=== PATIENT | male | born 1960 | race Caucasian/White ===

== ENCOUNTER 2017-07-17 06:41 | Day surgery (SDC) | payer BC ==
[2017-07-17] MEDS ORDERED: Lactated Ringers 1,000 ML IV SCH ×2 (07:00→09:00)
--- NOTE | 2017-07-17 07:20 | PCM.PREANE ---
Preanesthetic Assessment - Anesthesia/Transfusion/Family Hx Anesthesia History: Prior Anesthesia Without Reaction Other Type of Anesthesia Reaction Comment: Denies any known problem in past, no known family hx: problems Family History of Anesthesia Reaction: No Transfusion History: No Prior Transfusion(s) Intubation History: Unknown - Review of Systems General: No Symptoms Pulmonary: No Symptoms Cardiovascular: No Symptoms Gastrointestinal: Other (hematemesis) Neurological: No Symptoms Other: Reports: None - Physical Assessment O2 Sat by Pulse Oximetry: 99 Respiratory Rate: 16 Vital Signs: Last Vital Signs Temp 36.1 C 07/17/17 06:50 Pulse 58 L 07/17/17 06:50 Resp 16 07/17/17 06:50 BP 153/83 H 07/17/17 06:50 Pulse Ox 99 07/17/17 06:50 Height: 1.73 m Weight: 109.769 kg ASA Class: 2 Mental Status: Alert & Oriented x3 Airway Class: Mallampati = 2 Dentition: Reports: Normal Dentition, [place](s) (few at bottom front) Thyro-Mental Finger Breadths: 3 Mouth Opening Finger Breadths: 3 ROM/Head Extension: Full Lungs: Clear to Auscultation, Normal Respiratory Effort Cardiovascular: Regular Rate, Regular Rhythm - Allergies Allergies/Adverse Reactions: Allergies Allergy/AdvReac Type Severity Reaction Status Date / Time No Known Allergies Allergy Verified 07/13/17 11:39 - Blood Blood Available: No - Anesthesia Plan Pre-Op Medication Ordered: None - Acknowledgements Anesthesia Type Planned: MAC Pt an Appropriate Candidate for the Planned Anesthesia: Yes Alternatives and Risks of Anesthesia Discussed w Pt/Guardian: Yes Pt/Guardian Understands and Agrees with Anesthesia Plan: Yes PreAnesthesia Questionnaire HEENT History: Reports: Other (See Below) Other HEENT History: hx of fx nose Cardiovascular History: Reports: Other (See Below) (h/o HTN and hypercholesterolemia) Respiratory History: Reports: Other (See Below) (h/o benign pulmonary nodule) Other Respiratory History: 40 year hx of smoking, 0.5-1 PPD Gastrointestinal History: Reports: Colon Polyp, GERD Other Gastrointestinal History: Heartburn/GERD managed with current use of Prilosec.... hx of Barrets Esophagus Musculoskeletal History: Reports: Arthritis Other Musculoskeletal History: hx: fracturing nose Other Neuro History: hx: migraines, none for several years Endocrine/Metabolic History: Reports: Obesity/BMI 30+ - Past Surgical History Head Surgeries/Procedures: Reports: None GI Surgical History: Reports: Colonoscopy, EGD Other Musculoskeletal Surgeries/Procedures:: Right knee ACL repair, Release of Trigger finger, right shoulder RTCR - SUBSTANCE USE Smoking Status *Q: Current Every Day Smoker (1/2-1 ppd) Tobacco Use Within Last Twelve Months: Cigarettes Days Per Week of Alcohol Use: 2 Number of Drinks Per Day: 2 Total Drinks Per Week: 4 Recreational Drug Use History: No - HOME MEDS Home Medications: Home Meds Omeprazole 20 mg PO DAILY 01/01/15 [History] Magnesium 250 mg PO DAILY 07/13/17 [History] [place]-3 Fatty Acids/Fish Oil [[facility] Fish Oil 1,000 mg Softgel] 1 cap PO DAILY 06/29 [History] - CURRENT (IN HOUSE) MEDS Current Meds: Current Medications Lactated Ringer's (Ringers, Lactated) 1,000 mls @ 125 mls/hr IV ASDIRECTED [facility] Last Admin: 07/17/17 06:55 Dose: 125 mls/hr
[2017-07-17] MEDS ORDERED: Propofol 200 MG/20 ML SDV ONE ×2 (07:23→08:09)
[2017-07-17] MEDS ORDERED: Lidocaine 2% 5 ML SDV ONE (07:23)
--- NOTE | 2017-07-17 08:50 | PCM.POSTAN ---
POST ANESTHESIA ASSESSMENT - MENTAL STATUS Mental Status: Alert - RESPIRATORY Respiratory Status: Respiratory Rate WNL, Airway Patent, O2 Saturation Stable - CARDIOVASCULAR CV Status: Pulse Rate WNL, Blood Pressure Stable - GASTROINTESTINAL GI Status: No Symptoms - PAIN Pain Score: 0 - POST OP HYDRATION Hydration Status: Adequate & Stable - OBSERVATIONS Free Text/Narrative:: no anesthesia problems
--- NOTE | 2017-07-17 08:52 | PCM.OPNOTE ---
- General Post-Op/Procedure Note Date of Surgery/Procedure: 07/17/17 Operative Procedure(s): EGD w/ gastric and esophageal biopsies. Colonoscopy w/ cold rectal polypectomy. Pre Op Diagnosis: Hematemesis w/ melena. Hx of Barretts' esophagus. Hx of colon polyps. Post-Op Diagnosis: Gastritis w/ esophagitis. Rectal polyp. Sigmoid diverticulosis. Anesthesia Technique: MAC (ASA II) Primary Surgeon: Ayad Payan Condition: Good Free Text/Narrative:: Intake & Output 07/16/17 07/17/17 07/17/17 19:59 03:59 11:59 Intake Total 850 Balance 850 Dictation [id number] CPT CODE [id number]
[2017-07-17 09:46] VITALS: BP 127/68
--- NOTE | 2017-07-17 11:59 | OR ---
SURGEON: Ayad Payan M.D. DATE OF PROCEDURE: 07/17/2017 OPERATION PERFORMED: Esophagogastroduodenoscopy with biopsy. ANESTHESIA: MAC. ASA CLASSIFICATION: Two. PREOPERATIVE DIAGNOSES: 1. Recent history of hematemesis. 2. History of Martinez's esophagus. POSTOPERATIVE DIAGNOSES: 1. Gastritis. 2. Esophagitis with distal columnar epithelial changes. DESCRIPTION OF PROCEDURE: The patient was taken to the endoscopy room, positioned on the endoscopy table in the supine position. Time-out was called for appropriate identification of patient and procedure. Monitored anesthesia care was provided. The bite block was placed between the patient's teeth. The gastroscope was inserted through the bite block into the oropharynx and advanced without difficulty through the esophagus and stomach into the duodenum where examination was carried out in a retrograde fashion. The duodenum shows no acute inflammatory changes or ulcerations. The stomach does show [id number] gastritis. Antral biopsies were obtained to look for the presence of Helicobacter pylori. No acute ulcerations were noted. The gastroscope was retroflexed to visualize the proximal stomach. No lesions were noted proximally. No significant hiatal hernia was noted. The gastroscope was then straightened, the stomach aspirated and the scope slowly withdrawn. The GE junction does show changes suggestive of columnar epithelium and biopsies of the distal esophagus were obtained. The mid and proximal esophagus showed no acute inflammatory changes or ulcerations. The vocal cords were briefly visualized as the scope was withdrawn and noted to move symmetrically. The gastroscope was then removed with the patient having tolerated this portion of the procedure well. Following colonoscopy, he was taken to recovery room in stable condition. QUANG / MADHAVI /[id number]
--- NOTE | 2017-07-17 12:08 | OR ---
SURGEON: Ayad Payan M.D. DATE OF PROCEDURE: 07/17/2017 OPERATION PERFORMED: Colonoscopy with cold rectal polypectomy. ANESTHESIA: MAC. ASA CLASSIFICATION: Two. PREOPERATIVE DIAGNOSES: 1. Melena. 2. Personal history of colon polyps. POSTOPERATIVE DIAGNOSES: 1. Rectal polyp. 2. Sigmoid diverticulosis. DESCRIPTION OF PROCEDURE: With the patient having completed esophagogastroduodenoscopy with biopsy, he was now positioned in the left lateral decubitus position. The colonoscope was inserted into the rectum and advanced with minimal difficulty to the cecum. Cecum was identified by internal landmarks, the appendiceal orifice, and external pressure. The cecum, ascending colon, hepatic flexure, transverse colon, splenic flexure, and descending colon showed no tumors, polyps, diverticula, angiodysplasia, or evidence of inflammatory bowel disease. Sigmoid colon demonstrates numerous small diverticula. No stricture, spasm, or bleeding was noted. The colonoscope was withdrawn to the rectum where one small polyp was encountered and removed with the cold biopsy forceps. The colonoscope was then retroflexed to visualize the anal orifice from above. No tumors, polyps, or acute hemorrhoidal changes were noted. The colonoscope was straightened, the rectum aspirated, and the colonoscope removed. The patient tolerated the procedure well and was taken to recovery room in stable condition. QUANG / MADHAVI /[id number]
== END 2017-07-17 09:14 | disposition home or self-care (01) ==
LOC: MW.SDS 06:41
PROVIDERS: ATTEND Surgery
DX: K62.1 Rectal polyp (principal); K29.50 Unspecified chronic gastritis without bleeding; K57.30 Diverticulosis of large intestine without perforation or abscess without bleeding; J44.9 Chronic obstructive pulmonary disease, unspecified; I10 Essential (primary) hypertension; F17.210 Nicotine dependence, cigarettes, uncomplicated; E66.9 Obesity, unspecified; Z68.36 Body mass index [BMI] 36.0-36.9, adult; K21.0 Gastro-esophageal reflux disease with esophagitis; E78.00 Pure hypercholesterolemia, unspecified; Z86.010 Personal history of colon polyps; Z87.19 Personal history of other diseases of the digestive system
CPT/HCPCS: 43239; 45380; J7120; 88305; 88312; J2704

== ENCOUNTER 2021-04-02 07:14 | Day surgery (SDC) | payer BC ==
[~2021-04-02 07:14] MED LIST: Lactated Ringers 1,000 ML IV SCH; Midazolam 1 MG/ML 2 ML SDV ONE; Propofol 200 MG/20 ML SDV ONE; fentaNYL 100 MCG/2 ML SDV ONE
--- NOTE | 2021-04-02 07:49 | PCM.PREANE ---
Preanesthetic Assessment - Anesthesia/Transfusion/Family Hx Anesthesia History: Prior Anesthesia Without Reaction Other Type of Anesthesia Reaction Comment: Denies any known problem in past, no known family hx: problems Transfusion History: No Prior Transfusion(s) Intubation History: Unknown - Review of Systems General: No Symptoms Pulmonary: No Symptoms Cardiovascular: No Symptoms Gastrointestinal: No Symptoms Neurological: No Symptoms Other: Reports: None - Physical Assessment NPO Status Date: 04/02/21 NPO Status Time: 00:00 Vital Signs: Last Vital Signs Temp 96.4 F L 04/02/21 07:25 Pulse 56 L 04/02/21 07:25 Resp 16 04/02/21 07:25 BP 138/92 H 04/02/21 07:25 Pulse Ox Height: 5 ft 8 in Weight: 235 lb Mental Status: Alert & Oriented x3 Dentition: Reports: Normal Dentition ROM/Head Extension: Full Lungs: Clear to Auscultation, Normal Respiratory Effort Cardiovascular: Regular Rate, Regular Rhythm - Allergies Allergies/Adverse Reactions: Allergies Allergy/AdvReac Type Severity Reaction Status Date / Time No Known Allergies Allergy Verified 03/29/21 12:29 - Acknowledgements Anesthesia Type Planned: General Anesthesia Pt an Appropriate Candidate for the Planned Anesthesia: Yes Alternatives and Risks of Anesthesia Discussed w Pt/Guardian: Yes Pt/Guardian Understands and Agrees with Anesthesia Plan: Yes PreAnesthesia Questionnaire HEENT History: Reports: Other (See Below) Other HEENT History: hx of fx nose Cardiovascular History: Reports: Hypertension Respiratory History: Reports: COPD, Other (See Below) Other Respiratory History: 40 year hx of smoking, 0.5-1 PPD, does not have an inhaler Gastrointestinal History: Reports: Colon Polyp, Diverticulosis, Gastritis, GERD Other Gastrointestinal History: Heartburn/GERD managed with current use of Prilosec.... hx of Barrets Esophagus Genitourinary History: Reports: None Musculoskeletal History: Reports: Arthritis Other Musculoskeletal History: hx: fracturing nose Neurological History: Reports: Migraines Other Neuro History: hx: migraines, none for several years Psychiatric History: Reports: None Endocrine/Metabolic History: Reports: Obesity/BMI 30+ Hematologic History: Reports: None Immunologic History: Reports: None Oncologic (Cancer) History: Reports: None Dermatologic History: Reports: None - Past Surgical History Head Surgeries/Procedures: Reports: None HEENT Surgical History: Reports: None Cardiovascular Surgical History: Reports: None Respiratory Surgical History: Reports: None GI Surgical History: Reports: Colonoscopy, EGD Male Surgical History: Reports: None Endocrine Surgical History: Reports: None Neurological Surgical History: Reports: None Musculoskeletal Surgical History: Reports: Arthroscopic Knee, Shoulder Surgery Other Musculoskeletal Surgeries/Procedures:: Right knee ACL repair, Release of Trigger finger, right shoulder RTCR, hx of skin graft to left wrist and hand Oncologic Surgical History: Reports: None Dermatological Surgical History: Reports: None - SUBSTANCE USE Tobacco Use Status *Q: Former Tobacco User Tobacco Use Within Last Twelve Months: No Recreational Drug Use History: No - HOME MEDS Home Medications: Home Meds Omeprazole 20 mg PO DAILY 01/01/15 [History] lisinopriL [Lisinopril] 20 mg PO DAILY 03/29/21 [History] - CURRENT (IN HOUSE) MEDS Current Meds: Current Medications Lactated Ringer's (Ringers, Lactated) 1,000 mls @ 125 mls/hr IV ASDIRECTED [facility] Last Admin: 04/02/21 07:34 Dose: 125 mls/hr Documented by: Discontinued Medications Fentanyl (Fentanyl 100 Mcg/2 Ml Sdv) Confirm Administered Dose 100 mcg .ROUTE .STK-MED ONE Stop: 04/02/21 06:58 Midazolam HCl (Midazolam 1 Mg/Ml 2 Ml Sdv) Confirm Administered Dose 2 mg .ROUTE .STK-MED ONE Stop: 04/02/21 06:58 Propofol (Propofol 200 Mg/20 Ml Sdv) Confirm Administered Dose 200 mg .ROUTE .STK-MED ONE Stop: 04/02/21 06:58
[2021-04-02] MEDS ORDERED: Lidocaine 2% 5 ML SDV ONE (08:42)
[2021-04-02] MEDS ORDERED: Propofol 200 MG/20 ML SDV ONE (08:43)
--- NOTE | 2021-04-02 09:55 | PCM.OPNOTE ---
- General Post-Op/Procedure Note Date of Surgery/Procedure: 04/02/21 Operative Procedure(s): Esophagogastroduodenoscopy with gastric and esophageal biopsies. Colonoscopy with cold rectal polypectomy. Pre Op Diagnosis: History of Martinez's esophagus. History of colon polyps. Family history of colon cancer. Post-Op Diagnosis: Mild to moderate chronic gastritis. Hiatal hernia with esophagitis. Rectal polyp. Sigmoid diverticulosis. Anesthesia Technique: MAC (ASA III) Primary Surgeon: Ayad Payan Coin Machine Servicer Repairer: Eladio Hall Condition: Good Free Text/Narrative:: DICTATION [id number] CPT CODE [id number]
[2021-04-02] MEDS ORDERED: Lactated Ringers 1,000 ML IV SCH (10:00)
[2021-04-02 10:17] VITALS: BP 144/82; PULSE 47
--- NOTE | 2021-04-02 10:29 | PCM48HPAN ---
Post Anesthesia Note - EVALUATION WITHIN 48HRS OF ANESTHETIC Vital Signs in Normal Range: Yes Patient Participated in Evaluation: Yes Respiratory Function Stable: Yes Airway Patent: Yes Cardiovascular Function Stable: Yes Hydration Status Stable: Yes Pain Control Satisfactory: Yes Nausea and Vomiting Control Satisfactory: Yes Mental Status Recovered: Yes Vital Signs: Last Vital Signs Temp 97.2 F 04/02/21 10:11 Pulse 47 L 04/02/21 10:11 Resp 14 04/02/21 10:11 BP 144/82 H 04/02/21 10:11 Pulse Ox 95 04/02/21 10:11
--- NOTE | 2021-04-02 10:29 | PCM.POSTAN ---
POST ANESTHESIA ASSESSMENT - MENTAL STATUS Mental Status: Alert, Oriented - VITAL SIGNS Vital Signs: Last Vital Signs Temp 97.2 F 04/02/21 10:11 Pulse 47 L 04/02/21 10:11 Resp 14 04/02/21 10:11 BP 144/82 H 04/02/21 10:11 Pulse Ox 95 04/02/21 10:11 - RESPIRATORY Respiratory Status: Respiratory Rate WNL, Airway Patent, O2 Saturation Stable - CARDIOVASCULAR CV Status: Pulse Rate WNL, Blood Pressure Stable - GASTROINTESTINAL GI Status: No Symptoms - POST OP HYDRATION Hydration Status: Adequate & Stable
--- NOTE | 2021-04-02 11:36 | OR ---
SURGEON: Ayad Payan M.D. DATE OF PROCEDURE: 04/02/2021 OPERATION PERFORMED: Esophagogastroduodenoscopy with gastric and esophageal biopsies. PRIMARY SURGEON: Ayad Payan M.D. EARRING MAKER: Transfer Table Operator: WILLIAM Aguirre student. ANESTHESIA: MAC. ASA CLASSIFICATION: III. PREOPERATIVE DIAGNOSES: 1. Personal history of Martinez's esophagus. 2. History of gastritis. POSTOPERATIVE DIAGNOSES: 1. [id number] chronic gastritis. 2. Hiatal hernia with esophagitis, possible Martinez. DESCRIPTION OF PROCEDURE: The patient was taken to the endoscopy room and positioned on the endoscopy table in the left lateral decubitus position. Time-out was called for appropriate identification of the patient and procedure. Monitored anesthesia care was provided. The bite block was placed between the patient's teeth. The gastroscope was inserted through the bite block and advanced without difficulty through the oropharynx into the esophagus and subsequently through the stomach into the duodenum, where examination was now carried out in a retrograde fashion. The duodenum showed no acute inflammatory changes and no ulcerations were seen. The stomach did show [id number] chronic gastritis. No ulcerations were noted. Antral biopsies were obtained to look for the presence of Helicobacter pylori. The gastroscope was then retroflexed to visualize the proximal stomach. No tumors or polyps were noted proximally and no ulcers were seen. The gastroscope was then straightened and slowly withdrawn. The patient did have a small hiatal hernia and did show changes of esophagitis in the distal esophagus. Biopsies of the distal esophagus were obtained. No acute ulcerations were noted. The esophagus itself demonstrated good contractility. No mid or proximal lesions were identified. The vocal cords were briefly visualized as the scope was withdrawn and noted to move symmetrically. No lesions were noted on the vocal cords. The gastroscope was then removed with the patient having tolerated this portion of the procedure well. Following colonoscopy, he was taken to recovery room in stable condition. QUANG / MADHAVI /[id number]
--- NOTE | 2021-04-02 11:46 | OR ---
SURGEON: Ayad Payan M.D. DATE OF PROCEDURE: 04/02/2021 OPERATION PERFORMED: Colonoscopy with cold rectal polypectomy. PRIMARY SURGEON: Ayad Payan M.D. DISC PAD KNOCKOUT WORKER: Fruit Grading Supervisor: WILLIAM Aguirre student. ANESTHESIA: MAC. ASA CLASSIFICATION: III. PREOPERATIVE DIAGNOSES: 1. Personal history of colon polyps. 2. Family history of colon cancer. POSTOPERATIVE DIAGNOSES: 1. Rectal polyp. 2. Sigmoid diverticulosis. DESCRIPTION OF PROCEDURE: With the patient having completed upper GI endoscopy, he was maintained in the left lateral decubitus position. The colonoscope was inserted into the rectum and advanced with minimal difficulty to the cecum. The cecum was identified by internal landmarks and external pressure. The colonoscope was retroflexed to visualize the ascending colon from below, then straightened and slowly withdrawn. The cecum, ascending colon, hepatic flexure, transverse colon, splenic flexure, and descending colon showed no tumors, polyps, diverticula, or angiodysplastic changes. Sigmoid colon demonstrated moderate diverticular change. No stricture, spasm, or bleeding was noted. No polyps were encountered in the sigmoid colon. The colonoscope was withdrawn to the rectum where a single polyp was identified and removed with cold biopsy forceps. The colonoscope was retroflexed to visualize the anal orifice from above. No tumors or polyps were seen, and there were no acute hemorrhoidal changes. The colonoscope was then straightened, the rectum aspirated, and the colonoscope removed. The patient tolerated the procedure well and was taken to recovery room in stable condition. QUANG / MADHAVI /[id number]
== END 2021-04-02 10:35 | disposition home or self-care (01) ==
LOC: MW.SDS 07:14
PROVIDERS: ATTEND Surgery
DX: Z12.11 Encounter for screening for malignant neoplasm of colon (principal); K62.1 Rectal polyp; K57.30 Diverticulosis of large intestine without perforation or abscess without bleeding; K29.50 Unspecified chronic gastritis without bleeding; K44.9 Diaphragmatic hernia without obstruction or gangrene; K29.00 Acute gastritis without bleeding; K22.70 Barrett's esophagus without dysplasia; F17.210 Nicotine dependence, cigarettes, uncomplicated; J44.9 Chronic obstructive pulmonary disease, unspecified; K21.00 Gastro-esophageal reflux disease with esophagitis, without bleeding; I10 Essential (primary) hypertension; G43.909 Migraine, unspecified, not intractable, without status migrainosus; E78.00 Pure hypercholesterolemia, unspecified; Z79.899 Other long term (current) drug therapy; Z80.0 Family history of malignant neoplasm of digestive organs; Z98.890 Other specified postprocedural states
CPT/HCPCS: 43239; 45380; 88305; 88342; J2250; J2704; J3010; J7120; 00813

== ENCOUNTER 2022-08-19 09:16 | Day surgery (SDC) | payer BC ==
[~2022-08-19 09:16] MED LIST changes: -Midazolam 1 MG/ML 2 ML SDV ONE; -Propofol 200 MG/20 ML SDV ONE; -fentaNYL 100 MCG/2 ML SDV ONE
[2022-08-19] MEDS ORDERED: Propofol 200 MG/20 ML SDV ONE ×3 (09:35→10:25)
[2022-08-19] MEDS ORDERED: Midazolam 1 MG/ML 2 ML SDV ONE (10:00)
[2022-08-19] MEDS ORDERED: Lactated Ringers 1,000 ML IV SCH (10:30)
[2022-08-19 11:37] VITALS: BP 100/55; PULSE 82
== END 2022-08-19 11:32 | disposition home or self-care (01) ==
LOC: MW.SDS 09:16
PROVIDERS: ATTEND Surgery
DX: K29.50 Unspecified chronic gastritis without bleeding (principal); K29.00 Acute gastritis without bleeding; K21.9 Gastro-esophageal reflux disease without esophagitis; K44.9 Diaphragmatic hernia without obstruction or gangrene; K22.81 Esophageal polyp; K22.70 Barrett's esophagus without dysplasia; J44.9 Chronic obstructive pulmonary disease, unspecified; I10 Essential (primary) hypertension; K42.9 Umbilical hernia without obstruction or gangrene; E78.00 Pure hypercholesterolemia, unspecified; F17.210 Nicotine dependence, cigarettes, uncomplicated; Z86.010 Personal history of colon polyps; Z80.0 Family history of malignant neoplasm of digestive organs
CPT/HCPCS: 43239; J2250; J2704; J7120; 00731

== ENCOUNTER 2022-08-22 07:48 | Day surgery (SDC) | payer BC ==
[~2022-08-22 07:48] MED LIST changes: +Albuterol 0.083% 2.5 MG/3 ML Neb Soln NEB PRN; +HYDROmorphone 1 MG/ML Syringe IVPUSH PRN; +Metoclopramide 10 MG/2 ML SDV IVPUSH PRN; +Morphine 2 MG/ML SYRINGE IVPUSH PRN; +Naloxone 0.4 MG/ML SDV IVPUSH PRN; +Ondansetron 4 MG/2 ML SDV IVPUSH PRN; +Scopolamine 1.5 MG Transdermal Patch TOP ONE; +ceFAZolin 2 GM in Sodium Chloride 0.9% 50 ML IV ONE; +fentaNYL 50 MCG/ML SDV IVPUSH PRN
[2022-08-22] MEDS ORDERED: Ropivacaine 0.5% 5 MG/ML 30 ML SDV ONE (08:50)
[2022-08-22] MEDS ORDERED: Ondansetron 4 MG/2 ML SDV ONE (09:03)
[2022-08-22] MEDS ORDERED: Lidocaine 2% 5 ML SDV ONE (09:03)
[2022-08-22] MEDS ORDERED: Dexamethasone 4 MG/ML 5 ML MDV ONE (09:03)
[2022-08-22] MEDS ORDERED: Ketorolac 30 MG/ML SDV ONE (09:03)
[2022-08-22] MEDS ORDERED: Propofol 200 MG/20 ML SDV ONE (09:03)
[2022-08-22] MEDS ORDERED: Lidocaine 2% 11 ML Jelly Filled Syringe ONE (09:03)
[2022-08-22] MEDS ORDERED: fentaNYL 100 MCG/2 ML SDV ONE (09:03)
[2022-08-22] MEDS ORDERED: Bupivacaine 0.5% 30 ML SDV ONE (09:08)
[2022-08-22] MEDS ORDERED: ceFAZolin 1 GM Vial ONE ×2 (09:10→09:35)
[2022-08-22] MEDS ORDERED: Rocuronium Bromide 50 MG/5 ML Syringe ONE (09:38)
[2022-08-22] MEDS ORDERED: Sugammadex Sodium 200 MG/2 ML VIAL ONE (10:11)
[2022-08-22] MEDS ORDERED: Acetaminophen/HYDROcodone 325-5 MG Tab PO PRN (10:31)
[2022-08-22] MEDS ORDERED: Morphine 4 MG/ML Syringe IVPUSH PRN (10:31)
[2022-08-22] MEDS ORDERED: Lactated Ringers 1,000 ML IV SCH (10:45)
[2022-08-22 11:39] VITALS: BP 130/63; PULSE 65
== END 2022-08-22 11:30 | disposition home or self-care (01) ==
LOC: MW.SDS 07:48
PROVIDERS: ATTEND Surgery
DX: K42.0 Umbilical hernia with obstruction, without gangrene (principal); J44.9 Chronic obstructive pulmonary disease, unspecified; K29.50 Unspecified chronic gastritis without bleeding; K21.9 Gastro-esophageal reflux disease without esophagitis; I10 Essential (primary) hypertension; E78.00 Pure hypercholesterolemia, unspecified; G47.30 Sleep apnea, unspecified; E66.9 Obesity, unspecified; G89.29 Other chronic pain; M54.2 Cervicalgia; F17.210 Nicotine dependence, cigarettes, uncomplicated; G43.909 Migraine, unspecified, not intractable, without status migrainosus; M19.90 Unspecified osteoarthritis, unspecified site; Z79.899 Other long term (current) drug therapy; Z98.890 Other specified postprocedural states; Z68.36 Body mass index [BMI] 36.0-36.9, adult
CPT/HCPCS: 49592; A9270; J0690; J1100; J1885; J2405; J2704; J2795; J3010; J3490; J7120; 00830; 64488